=== PATIENT | male | born 2000 | race African-American/Black ===

== ENCOUNTER 2022-08-19 12:00 | Emergency (ER) | payer SELFPAY ==
--- NOTE | ~2022-08-19 | CT_ITS ---
CT of the Abdomen and Pelvis: Indication: Left perineal abscess Technique: 2.5 mm axial scans were obtained through the abdomen and pelvis following intravenous adm inistration of 100 cc of Omnipaque 350. Dose reduction technique was used on this scan by utilizing a utomated exposure control and iterative reconstruction technique. The dose-length product (DLP) was 4 11.77 mGy-cm. Findings: Scans through the lung bases are unremarkable. The liver, spleen, pancreas, gallbladder, adrenals and kidneys are within normal limits. No evidence of aortic aneurysm. No lymphadenopathy. No bowel obstruction or bowel wall thickening. There is no evidence to suggest acute appendicitis. Images through the pelvis were performed. Urinary bladder unremarkable. Prostate gland and seminal ve sicles are unremarkable. No ascites. There is an apparent small abscess or area of infiltration in th e left perineum superficially/subcutaneously, measuring approximately 2.7 x 1.5 x 1.5 cm in extent (a xial images 195-199, coronal images 75-84). Impression: 2.7 x 1.5 x 1.5 cm area of phlegmon or abscess superficially in the left perineal region, as detailed above. Reviewed, dictated and finalized at location . Impression: 2.7 x 1.5 x 1.5 cm area of phlegmon or abscess superficially in the left perine al region, as detailed above.
[2022-08-19 12:34] VITALS: BP 137/95; PULSE 97; RESP 16; TEMP 36.8; O2SAT 100
[2022-08-19 14:35] LABS: Basophils Percent Auto 0.2 % (0.2-1.2); Eosinophils Absolute Auto 0.1 K/mm3 (0-0.3); Eosinophils Percent Auto 0.5 % (0-4.4); Hematocrit 43.3 % (42.0-52.0); Hemoglobin 14.2 g/dL (14.0-18.0); Immature Granulocyte Absolute 0.02 K/mm3 (0.00-0.031); Immature Granulocyte Percent A 0.2 % (0-0.5); Lymphocytes Absolute Auto 1.98 K/mm3 (0.9-3.2); Lymphocytes Percent Auto 17.4 % (18.3-44.2); Mean Corpuscular HGB Conc 32.8 g/dl (32-36); Mean Corpuscular Hemoglobin 29.8 pg (26-34); Mean Platelet Volume 9.9 fl (7.4-10.4); Monocytes Percent Auto 8.6 % (2.6-8.5); Neutrophils Absolute Auto 8.3 K/mm3 (1.3-6.7); Neutrophils Percent Auto 73.1 % (45.5-73.1); Platelet Count Result 230 k/mm3 (150-375); Red Blood Count 4.76 M/mm3 (4.6-6.20); Red Cell Distribution Width 13.6 % (11.5-14.5); White Blood Count 11.4 K/mm3 (4.5-10.0)
[2022-08-19 14:37] LABS: Appearance Urine Clear (Clear); Bilirubin Urine Negative (Negative); Blood Urine Negative (Negative); Color Urine Yellow (Yellow); Glucose Urine UA Negative (Negative); Ketones Urine Trace mg/dL (Negative); Leukocyte Esterase Ur Negative LEU/UL (Negative); Nitrate Urine Negative (Negative); Protein Urine Negative (Negative); Specific Grav Ur 1.023 (1.001-1.035); Urobilinogen Urine 0.2 mg/dL (<2.0)
[2022-08-19 14:40] LABS: Add Urine Microscopic? NO
--- NOTE | 2022-08-19 14:43 | ED.SKABFB ---
HPI - Skin/Abscess/Foreign Bdy General Chief complaint: Skin/Abscess/Foreign Body Stated complaint: boil buttock Time Seen by Provider: 08/19/22 13:56 Source: patient Mode of arrival: ambulatory Limitations: no limitations History of Present Illness HPI narrative: 21-year-old male presents today with complaints of abscess to the left perineal area just distal to the left testicle. Patient noted area about 2 days ago states is very painful. Patient denies any fevers, body aches, chills, nausea, vomiting, diarrhea. Patient states he thinks that the area might be smaller but he is not sure. Patient has a history of having these issues in the past but has never seen a doctor for them. Related Data Allergies Allergy/AdvReac Type Severity Reaction Status Date / Time No Known Allergies Allergy Verified 08/19/22 13:54 Review of Systems Review of Systems: CONSTITUTIONAL: Denies fever, chills, or sweats. EYES: Denies visual changes, redness, or discharge. CARDIOVASCULAR: Denies chest pain, palpitations, or edema. RESPIRATORY: Denies cough or dyspnea. GASTROINTESTINAL: Denies abdominal pain, nausea, vomiting, or diarrhea. GENITOURINARY: Denies dysuria or hematuria. Pain distal to the left testicle with swelling. Currently draining purulent sanguinous foul-smelling fluid. Tenderness up into the left testicle area. No swelling to left testicle. SKIN: Denies rash or itching. MUSCULOSKELETAL: Denies back pain, joint pain, or myalgia. NEUROLOGIC: Denies headache, numbness, dizziness, or weakness. PSYCHIATRIC: Denies anxiety or depression. Course Vital Signs Vital signs: Vital Signs Temperature 98.3 F 08/19/22 12:34 Pulse Rate 97 08/19/22 12:34 Respiratory Rate 16 08/19/22 12:34 Blood Pressure 137/95 H 08/19/22 12:34 Pulse Oximetry 100 08/19/22 12:34 Oxygen Delivery Room Air 08/19/22 12:34 Temperature 98.3 F 08/19/22 12:34 Pulse Rate 97 08/19/22 12:34 Respiratory Rate 16 08/19/22 12:34 Blood Pressure 137/95 H 08/19/22 12:34 Pulse Oximetry 100 08/19/22 12:34 Oxygen Delivery Room Air 03/12/23 12:34 Procedures Abscess I/D brianna-rectal: Date of Incision: 08/19/22 Time of Incision: 16:00 Side (if applicable): left Local Anesthetic: lidocaine 1% Amount of anesthesia used (mL): 1.5 Technique: incised with #11 blade and other (already draining) Irrigation: Yes Packing used?: none I&D Results: Pus and Blood Complications: pain and bleeding Abcess I&D Additional Comments: prior to incision Moderate amount of purulent sanguinous drainage expressed from the area which is distal to left testicle but small to rectum.. Procedure stopped due to pain. Will obtain CT. Ct shows superficial abscess. area anesthetized with 1.5 mL of lidocaine. 1 cm incision made with an 11 blade patient tolerated well. Small amount of purulent drainage expressed. Area deloculated and irrigated with 20 mL of saline. Patient tolerated well. 4 x 4's applied. MDM - Skin/Abscess/Foreign Bdy MDM Narrative Medical decision making narrative: 21-year-old male HPI as noted. Differentials as below. Abscess already draining at time of initial assessment and moderate amount of purulent drainage expressed. Due to area and tenderness and area extending up near the scrotum CBC, CMP, CT of the abdomen pelvis obtained. CBC shows white count of 11.4 and CMP without concerning findings CT shows 2.7 x 1.5 x 1.5 cm area of phlegmon or abscess superficially in the left perineal region. Area was I&D did with a small amount of blood and purulent drainage again. A 1 cm incision was made. Patient tolerated it well and will send home with antibiotics plan follow-up with general surgery. Strict return precautions reviewed. Differential Diagnosis Differential diagnosis: Likely abscess of skin or subcutaneous tissue, cellulitis and other (perirectal abscess, fourneirs gangrene) Lab D
[2022-08-19 14:47] LABS: Alanine Aminotransferase 17 U/L (6-50); Albumin Level 4.1 g/dL (3.5-5.1); Alkaline Phosphatase 86 U/L (38-126); Anion Gap 4 mmol/L (8-16); Aspartate Amino Transferase 19 U/L (17-59); Bilirubin,Total 0.7 mg/dL (0.2-1.3); Blood Urea Nitrogen 14 mg/dL (9-20); Calcium 8.8 mg/dL (8.4-10.2); Carbon Dioxide 30 mmol/L (22-30); Chloride 104 mmol/L (98-107); Estimated CRCL calculation 101 ml/min; Estimated Glomerular Filt Rate > 60; Glucose 61 mg/dL (65-110); Potassium 3.9 mmol/L (3.4-5.0); Sodium 138 mmol/L (137-145)
[2022-08-19] MEDS: KETOROLAC 30 MG/ML VIAL (*BKC) IV PUSH (15:13)
== END 2022-08-19 16:35 | disposition home or self-care (01) ==
PROVIDERS: Emergency Provider Nurse Practitioner Family
DX: L02.215 Cutaneous abscess of perineum (principal)
CPT/HCPCS: 36415; 46040; 74177; 80053; 81003; 85025; 96374; 99284; J1885; Q9967